=== PATIENT | female | born 1990 | race African-American/Black ===

== ENCOUNTER 2019-03-19 08:22 | Inpatient (IN) ==
[2019-03-19] MEDS: LACTATED RINGERS 1,000 ML IV SCH (08:48)
[2019-03-19] MEDS ORDERED: ONDANSETRON 4 MG/2 ML VIAL IV PRN (08:57)
[2019-03-19] MEDS ORDERED: BUTORPHANOL 2 MG/ML VIAL IV PRN (08:57)
[2019-03-19] MEDS ORDERED: MEPERIDINE 50 MG/1 ML VIAL IV PRN (08:57)
[2019-03-19] MEDS ORDERED: FAMOTIDINE 20 MG/2 ML VIAL IV ONE (08:59)
[2019-03-19] MEDS ORDERED: PROMETHAZINE 25 MG/1 ML VIAL IM ONE (08:59)
[2019-03-19] MEDS ORDERED: CITRIC ACID/SODIUM CITRATE 30 ML UDCUP PO ONE (08:59)
[2019-03-19] MEDS ORDERED: hydrOXYzine HCL 25 MG/1 ML VIAL IM PRN (08:59)
[2019-03-19] MEDS ORDERED: NALOXONE 0.4 MG/ML VIAL IV PRN (08:59)
[2019-03-19] MEDS ORDERED: ePHEDrine 50 MG/ML AMP IV PRN (08:59)
[2019-03-19] MEDS ORDERED: LACTATED RINGERS 1,000 ML IV ONE (08:59)
[2019-03-19] MEDS ORDERED: diphenhydrAMINE 50 MG/1 ML VIAL IV PRN ×2 (08:59)
[2019-03-19] MEDS ORDERED: OXYTOCIN/LR 20 UNIT/1,000 ML BAG IV SCH (09:00)
[2019-03-19] MEDS ORDERED: fentaNYL 2 MCG/ROPIV 0.2% EPID 100 ML EPIDURAL SCH (09:00)
[2019-03-19 09:36] LABS: Basophils % 0.4 % (0.0-0.8); Eosinophils # 0.1 10*3/uL (0.0-0.87); Hematocrit 24.8 VOL% (35.7-47.0); Hemoglobin 7.4 GM/DL (12.0-16.0); Immature Granulocytes % 0.6 %; Immature Granulocytes Absolute 0.06 #; Lymphocytes # 2.8 10*3/uL (1.4-4.0); Lymphocytes % 30.1 % (21.3-54.2); Mean Corpuscular HGB Conc 29.8 GM/DL (32-36); Mean Corpuscular Volume 71.5 FL (87-102); Mean Platelet Volume 10.4 FL (9.6-12.0); Monocytes % 3.5 % (1.7-12.7); Neutrophils % 64.4 % (38.7-73.9); Platelet Count 295 T/CUMM (130-400); Red Blood Count 3.47 MC/CUMM (3.8-5.5); Red Cell Distribution Width 15.6 % (9.3-17.3); White Blood Count 9.4 T/CUMM (4-12)
[2019-03-19] MEDS ORDERED: PENICILLIN G POTASSIUM INJ 6,000,000 UNIT in SODIUM CHLORIDE 0.9% 100 ML IV ONE (10:00)
[2019-03-19 10:10] LABS: Albumin 2.5 G/DL (3.4-5.0); Bilirubin,Total 0.5 MG/DL (0.2-1.0); Calcium 8.5 MG/DL (8.5-10.1); Osmolality,Calculated 271.7 MOS/KG (273-304); Total Protein 6.8 G/DL (6.4-8.3)
[2019-03-19] MEDS ORDERED: OXYTOCIN 40 UNIT in LACTATED RINGERS 1,000 ML IV ONE (10:30)
[2019-03-19 11:14] LABS: Apearance,Urine CLEAR (Clear); Bilirubin,Urine Negative (Negative); Blood, Urine Small mg/dL (Negative); Glucose,Urine (UA) Negative (Negative); Ketones,Urine 80 mg/dL (Negative); Mucus,Urine Occasional /LPF (Occasional); Nitrite,Urine Negative (Negative); Protein,Urine 30 MG/DL; RBC,Urine 50 /HPF (0-4); Squamous Epithelial Cell,Urine Occasional /HPF (0-10); Urine Color Yellow (Yellow); Urine Specific Gravity 1.025 (1.001-1.035); WBC,Urine <1 /HPF (0-6)
[2019-03-19] MEDS ORDERED: PENICILLIN G POTASSIUM INJ 3,000,000 UNIT in SODIUM CHLORIDE 0.9% 100 ML IV SCH (14:00)
[2019-03-19] MEDS ORDERED: miSOPROStol 200 MCG TABLET ONE (14:38)
[2019-03-19] MEDS ORDERED: METHYLERGONOVINE 0.2 MG/1 ML AMP ONE (14:38)
[2019-03-19] MEDS ORDERED: CARBOPROST TROMETHAMINE 250 MCG/ML AMP IM ONE (14:39)
[2019-03-19] MEDS ORDERED: FLUCONAZOLE 150 MG TABLET PO ONE (15:43)
[2019-03-19] MEDS ORDERED: MEASLES/MUMPS/RUBELLA VACCINE 0.5 ML VIAL SUBCUT ONE (18:42)
[2019-03-19] MEDS ORDERED: LANOLIN 50% CREAM 0.3 OZ TUBE TOP PRN (18:42)
[2019-03-19] MEDS ORDERED: WITCH HAZEL PADS 100/JAR TOP PRN (18:42)
[2019-03-19] MEDS ORDERED: DIPH/TET/ACEL PERT BOOSTER VACCINE 0.5 ML VIAL IM ONE (18:42)
[2019-03-19] MEDS ORDERED: ACETAMINOPHEN 325 MG TABLET PO PRN (18:42)
[2019-03-19] MEDS ORDERED: BENZOCAINE 20%/MENTHOL 0.5% SPRAY 56 GM CAN TOP PRN (18:42)
[2019-03-19] MEDS ORDERED: HYDROCORTISONE 2.5% RECTAL CREAM 30 GM TUBE TOP PRN (18:42)
[2019-03-19] MEDS ORDERED: RHO(D) IMMUNE GLOBULIN 300 MCG SYRINGE IM ONE (18:42)
[2019-03-19] MEDS ORDERED: KETOROLAC 30 MG/1 ML VIAL IV SCH (18:42)
[2019-03-19] MEDS ORDERED: BISACODYL 10 MG SUPP RECTAL PRN (18:42)
[2019-03-19] MEDS: DOCUSATE SODIUM 100 MG CAPSULE PO SCH (20:35)
[2019-03-19] MEDS: KETOROLAC 30 MG/1 ML VIAL IV SCH (20:35)
[2019-03-19] MEDS: POTASSIUM CHLORIDE 20 MEQ TABLET PO SCH (20:35)
[2019-03-20 05:13] LABS: Basophils % 0.2 % (0.0-0.8); Eosinophils # 0.1 10*3/uL (0.0-0.87); Eosinophils % 0.8 % (0.00-10.9); Hematocrit 27.1 VOL% (35.7-47.0); Hemoglobin 7.9 GM/DL (12.0-16.0); Immature Granulocytes % 1.5 %; Immature Granulocytes Absolute 0.25 #; Lymphocytes # 4.1 10*3/uL (1.4-4.0); Lymphocytes % 24.4 % (21.3-54.2); Mean Corpuscular HGB Conc 29.2 GM/DL (32-36); Mean Corpuscular Volume 72.3 FL (87-102); Mean Platelet Volume 10.5 FL (9.6-12.0); Monocytes % 5.7 % (1.7-12.7); Neutrophils % 67.4 % (38.7-73.9); Platelet Count 321 T/CUMM (130-400); Red Blood Count 3.75 MC/CUMM (3.8-5.5); Red Cell Distribution Width 15.5 % (9.3-17.3); White Blood Count 16.7 T/CUMM (4-12)
[2019-03-20] MEDS: KETOROLAC 30 MG/1 ML VIAL IV SCH ×2 (06:54→14:19)
[2019-03-20] MEDS ORDERED: FERROUS SULFATE 325 MG TABLET PO SCH (09:00)
[2019-03-20] MEDS: DOCUSATE SODIUM 100 MG CAPSULE PO SCH ×2 (09:41→21:30)
[2019-03-20] MEDS ORDERED: LIDOCAINE MPF 2% /EPI 20 ML VIAL ONE (10:13)
[2019-03-20] MEDS: LACTATED RINGERS 1,000 ML IV SCH (10:24)
[2019-03-20] MEDS ORDERED: TISSUE ADHESIVE 1 EACH APPLICATOR TOP ONE (10:28)
[2019-03-20] MEDS ORDERED: LIDOCAINE 1% 20 ML VIAL ONE (10:28)
[2019-03-20] MEDS ORDERED: cefOXitin 3,000 MG in SODIUM CHLORIDE 0.9% 100 ML IV ONE (10:30)
[2019-03-20] MEDS ORDERED: ONDANSETRON 4 MG/2 ML VIAL IV PRN (12:19)
[2019-03-20] MEDS ORDERED: ONDANSETRON 4 MG/2 ML VIAL ONE (12:32)
[2019-03-20] MEDS ORDERED: HYDROmorphone 2 MG/1 ML VIAL ONE (12:32)
[2019-03-20] MEDS: HYDROmorphone 2 MG/1 ML VIAL IV PRN ×2 (12:37→12:43)
[2019-03-20] MEDS ORDERED: MIDAZOLAM 2 MG/2 ML VIAL ONE (12:46)
[2019-03-20] MEDS: POTASSIUM CHLORIDE 20 MEQ TABLET PO SCH ×2 (14:46→21:30)
[2019-03-20] MEDS: FERROUS SULFATE 325 MG TABLET PO SCH ×2 (14:47→21:30)
[2019-03-20] MEDS: IBUPROFEN 800 MG TABLET PO SCH (21:31)
[2019-03-21] MEDS: IBUPROFEN 800 MG TABLET PO SCH ×2 (06:30→08:00)
[2019-03-21 07:35] VITALS: BP 123/64
[2019-03-21] MEDS: FERROUS SULFATE 325 MG TABLET PO SCH (09:10)
[2019-03-21] MEDS: POTASSIUM CHLORIDE 20 MEQ TABLET PO SCH (09:10)
[2019-03-21] MEDS: DOCUSATE SODIUM 100 MG CAPSULE PO SCH (09:10)
[2019-03-21] MEDS ORDERED: KETOROLAC 30 MG/1 ML VIAL ONE (12:11)
== END 2019-03-21 14:35 | disposition home or self-care (01) | DRG 541 ==
LOC: N.LDOUT 08:22 → N.LD 08:24 → N.OB 18:28
PROVIDERS: ADMIT Obstetrics & Gynecology; ATTEND Obstetrics & Gynecology